=== PATIENT | male | born 1995 | race Caucasian/White ===

== ENCOUNTER 2016-05-15 16:10 | Emergency (ER) | payer OTHER ==
[~2016-05-15] VITALS: Ht 175.3 cm; Wt 78.0 kg
[2016-05-15 16:21] VITALS: Ht 175.3 cm; Wt 78.0 kg
--- NOTE | 2016-05-15 17:18 | EN ---
Date/Time of Note Date/Time of Note DATE: 05/15/16 TIME: 17:17 ER Progress Note This patient was originally seen in the rapid medical evaluation area and a history determined that the patient may need a further workup. The patient states he was at work earlier today and he believes he lost consciousness and woke up in the ambulance. The patient will be sent to ED2. CASEY CUADRA PA-C May 15, 2016 17:18
--- NOTE | 2016-05-15 17:58 | RADRPT ---
PROCEDURE: XR Chest. CLINICAL INDICATION: chest pain TECHNIQUE: Single frontal view of the chest was obtained COMPARISON: None FINDINGS: The heart and mediastinum are within normal limits. The lungs are clear. There is no pleural effusion or pneumothorax. RPTAT: AA IMPRESSION: No acute disease. .Esa Ballesteros MD, Date Time Electronically viewed and signed by .Esa Ballesteros MD, on 05/15/2016 17:58 .S/
[2016-05-15] MEDS ORDERED: LORAZEPAM 1 MG TAB PO ONE (18:00)
[2016-05-15] MEDS ORDERED: LORA1TAB PO (18:47)
--- NOTE | 2016-05-15 19:21 | ERD ---
ER Documentation Chief Complaint Date/Time DATE: 05/15/16 TIME: 19:17 Chief Complaint ANXIETY ATTACK AT WORK HPI This is a 20-year-old male presents to the ER stating he had an anxiety attack at work. Patient states that he felt chest pain and shortness of breath. He also felt as if both hands were numb and tingly. I asked patient if he passed out he said no. She states that the paramedics told him to breathe and that this helps his symptoms. He is currently feeling better here in the ER. He has had episodes like this in the past. ROS 12 point review of systems was done, all negative except per HPI. Medications Home Meds Active Scripts Lorazepam* (Lorazepam*) 1 Mg Tablet, 1 MG PO Q8, #10 TAB Prov:AARON QUINONEZ 05/15/16 Allergies Allergies: Coded Allergies: No Known Allergy (Unverified , 05/15/16) PMhx/Soc Medical and Surgical Hx: pt denies Medical Hx, pt denies Surgical Hx Hx Alcohol Use: No Hx Substance Use: No Hx Tobacco Use: No Physical Exam Vitals Vital Signs Date Time Temp Pulse Resp B/P Pulse Ox O2 Delivery O2 Flow Rate FiO2 05/15/16 16:21 98.1 70 18 139/70 99 Physical Exam GENERAL: The patient is well developed and appropriate for usual state of health , in no apparent distress. HEENT: Atraumatic. Conjunctivae are pink. Pupils equal, round, and reactive to light. Extraocular muscles are grossly intact. Bilateral tympanic membranes are clear with no evidence of erythema, effusion or dulling of the light reflex. The oropharynx is clear with no erythema or exudates. NECK: C-spine is soft and supple. There is no cervical lymphadenopathy. CHEST: Clear to auscultation bilaterally. There are no rales, wheezes or rhonchi. HEART: Regular rate and rhythm. No murmurs, clicks, rubs or gallops. ABDOMEN: Soft, nontender and nondistended. Good bowel sounds. No rebound or guarding. No gross peritonitis. No gross organomegaly or masses. No Beckford sign or McBurney point tenderness. No pulsatile masses. BACK: No midline or flank tenderness. EXTREMITIES: Equal pulses bilaterally. There is no peripheral clubbing, cyanosis or edema. No focal swelling or erythema. Full range of motion. Grossly neurovascularly intact. NEURO: Alert and oriented. Cranial nerves II through XII are intact. Motor strength in all 4 extremities with 5/5 strength. Sensation grossly intact. Normal speech and gait. SKIN: There is no apparent rash or petechia. The skin is warm and dry. Results 24 hrs Current Medications Medications (Trade) Dose Ordered Sig/Latrice Route PRN Reason Start Time Stop Time Status Last Admin Dose Admin Lorazepam (Ativan) 1 mg ONCE ONCE PO 05/15/16 18:00 05/15/16 18:01 DC 05/15/16 17:56 Procedures/MDM Differential diagnosis includes but is not limited to; STEMI, dissection, pneumothorax, PE, esophageal rupture, tamponade, pneumonia, pericarditis, GERD, musculoskeletal, endocarditis, anxiety. This is likely anxiety. Suspicion for acute [place] is low. Normal sinus rhythm no ST elevation or T-wave inversion. Patient was given lorazepam and upon reexamination patient felt significantly better. Patient will be sent home with lorazepam. Needs to follow-up with PCP within 1-2 days or return to ER sooner if symptoms worsen. Plan was discussed with the patient he understands and agrees with plan. Departure Diagnosis: Primary Impression: Anxiety Condition: Stable Patient Instructions: Anxiety Reaction Additional Instructions: Call your primary care doctor TOMORROW for an appointment during the next 1-2 days.See the doctor sooner or return here if your condition worsens before your appointment time. AARON QUINONEZ May 15, 2016 19:21
[2016-05-15 19:27] VITALS: BP 132/70
== END 2016-05-15 19:25 | disposition home or self-care (01) ==
LOC: FTE 16:10
DX: F41.9 Anxiety disorder, unspecified (principal)
CPT/HCPCS: 71010; 93005; Z7502; Z7610